=== PATIENT | female | born 1990 | race Caucasian/White ===

== ENCOUNTER 2016-11-19 00:34 | Emergency (ER) | payer OTHER ==
[2016-11-19] MEDS ORDERED: METOCLOPRAMIDE HCL INJECTION 10 MG/2 ML VIAL IVPB ONE (00:47)
[2016-11-19] MEDS ORDERED: SODIUM CHLORIDE 1,000 ML IV STA (00:47)
[2016-11-19] MEDS ORDERED: FAMOTIDINE 20 MG/50 ML IVPB 50 ML IVPB ONE ×2 (00:47→01:03)
[2016-11-19] MEDS ORDERED: ACETAMINOPHEN 325 MG TABLET (FP) PO ONE (00:47)
[2016-11-19] MEDS ORDERED: ACETAMINOPHEN 325 MG TABLET (FP) ONE (01:02)
[2016-11-19] MEDS ORDERED: METOCLOPRAMIDE HCL INJECTION 10 MG/2 ML VIAL ONE (01:02)
[2016-11-19 01:15] LABS: BASOPHIL 0.2 % (0-2.0); EOSINOPHIL 1.1 % (0-4.5); MCH 30.6 pg (25.7-33.7); MCHC 34.3 g/dl (32.0-36.0); MEAN CELL VOLUME 89.2 fl (80-96); MEAN PLT VOLUME 7.6 fl (7.5-11.1); NEUTROPHILS 84.6 % (42.8-82.8); PLATELET COUNT 225 K/MM3 (134-434); RDW 13.7 % (11.6-15.6); WHITE BLOOD COUNT 9.5 K/mm3 (4.0-10.0)
--- NOTE | 2016-11-19 01:30 | PDOC ---
History of Present Illness - General History Source: Patient Exam Limitations: No Limitations - History of Present Illness Initial Comments: 11/19/16 01:33 The patient is a 26 year old female (; currently approximately 11 weeks ), with no significant past medical history, who presents to the emergency department with nausea, vomiting and diarrhea since approximately 5: 30 PM yesterday evening. The patient reports three episodes of nonbloody nonbilious vomiting and two episodes of diarrhea in the past couple of hours. The patient additionally reports some abdominal cramping. The patient denies fever, chills or recent illnesses. The patient denies vaginal bleeding. Allergies: None reported. Past Surgical History: None reported. Social History: Non smoker. Denies alcohol or drug use. <Kenisha Thacker - Last Filed: 11/19/16 01:35> - General History Source: Patient Exam Limitations: No Limitations <Luis Pabon - Last Filed: 11/19/16 02:46> - General Stated Complaint: 11 WEEKS /VOMITING Time Seen by Provider: 11/19/16 00:39 Past History <Kenisha Thacker - Last Filed: 11/19/16 01:35> - Past Medical History Anemia: Yes - Reproductive History (#): 2 Para: 1 Therapeutic (s) & number: Yes - Psycho/Social/Smoking Cessation Hx Anxiety: No Suicidal Ideation: No Smoking History: Never smoked Have you smoked in the past 12 months: No Hx Alcohol Use: No Drug/Substance Use Hx: No Substance Use Type: None <Luis Pabon - Last Filed: 11/19/16 02:46> - Past Medical History Allergies/Adverse Reactions: Allergies Allergy/AdvReac Type Severity Reaction Status Date / Time No Known Allergies Allergy Verified 11/19/16 01:32 Home Medications: Ambulatory Orders Multivitamins [Multivit ([facility] Formul[facility])] 1 tab PO DAILY #30 tab 05/11/14 Ibuprofen [Motrin -] 600 mg PO TID #21 tablet 04/24/15 Acetaminophen [Tylenol] 650 mg PO Q4H PRN #20 tablet 11/19/16 Cephalexin [Keflex] 500 mg PO BID #10 capsule 11/19/16 Famotidine [Pepcid] 20 mg PO BID PRN #14 tablet 11/19/16 Metoclopramide HCl [Reglan] 10 mg PO Q8H PRN #12 tablet 11/19/16 Review of Systems - Review of Systems Able to Perform ROS?: Yes Comments:: 11/19/16 01:31 GENERAL/CONSTITUTIONAL: No fever or chills. No weakness. HEAD, EYES, EARS, NOSE AND THROAT: No change in vision. No ear pain or discharge. No sore throat. CARDIOVASCULAR: No chest pain or shortness of breath. RESPIRATORY: No cough, wheezing, or hemoptysis. GASTROINTESTINAL: +Nausea, vomiting, diarrhea, abdominal cramping. No constipation. GENITOURINARY: No dysuria, frequency, or change in urination. MUSCULOSKELETAL: No joint or muscle swelling or pain. No neck or back pain. SKIN: No rash. NEUROLOGIC: No headache, vertigo, loss of consciousness, or change in strength/ sensation. ENDOCRINE: No increased thirst. No abnormal weight change. HEMATOLOGIC/LYMPHATIC: No anemia, easy bleeding, or history of blood clots. ALLERGIC/IMMUNOLOGIC: No hives or skin allergy. <Kenisha Thacker - Last Filed: 11/19/16 01:35> *Physical Exam - Physical Exam Comments: 11/19/16 01:30 GENERAL: Awake, alert, and fully oriented, in no acute distress. HEAD: No signs of trauma. EYES: PERRLA, EOMI, sclera anicteric, conjunctiva clear. ENT: Dry mucosa. Auricles normal inspection, hearing grossly normal, nares patent, oropharynx clear without exudates. NECK: Normal ROM, supple, no lymphadenopathy, JVD, or masses. LUNGS: Breath sounds equal, clear to auscultation bilaterally. No wheezes, and no crackles. HEART: Regular rate and rhythm, normal S1 and S2, no murmurs, rubs or gallops. ABDOMEN: Mild epigastric tenderness. Soft, normoactive bowel sounds. No guarding , no rebound. No masses. EXTREMITIES: Normal range of motion, no edema. No clubbing or cyanosis. No cords , erythema, or tenderness. NEUROLOGICAL: Cranial nerves II through XII intact. Normal speech, normal gait. SKIN: Warm, dry, normal turgor, no rashes or lesions noted. <Kenisha Thacker - Last Filed: 11/19/16 01:35> ED Treatment Course - LABORATORY CBC & Chemistry Diagram: 11/19/16 01:00 11/19/16 01:00 - ADDITIONAL ORDERS Additional order review: 11/19/16 01:00 RBC 4.35 MCV 89.2 MCHC 34.3 RDW 13.7 MPV 7.6 Neutrophils % 84.6 H D Lymphocytes % 10.5 D Monocytes % 3.6 L Eosinophils % 1.1 D Basophils % 0.2 - Medications Given in the ED: ED Medications Discontinued Medications Generic Name Dose Route Start Last Admin Trade Name Freq PRN Reason Stop Dose Admin Acetaminophen 650 mg 11/19/16 00:47 11/19/16 01:09 Tylenol - PO 11/19/16 00:48 650 mg ONCE ONE Administration Famotidine/Sodium Chloride 50 mls @ 100 mls/hr 11/19/16 00:47 11/19/16 01:09 Pepcid 20 Mg Premixed Ivpb - IVPB 11/19/16 01:16 100 mls/hr ONCE ONE Administration Metoclopramide HCl 10 mg 11/19/16 00:47 11/19/16 01:09 Reglan Injection - IVPB 11/19/16 00:48 10 mg ONCE ONE Administration <Kenisha Thacker - Last Filed: 11/19/16 01:35> - LABORATORY CBC & Chemistry Diagram: 11/19/16 01:00 11/19/16 01:00 - RADIOLOGY Radiology Studies Ordered: Category Date Time Status <14WKS US [US] Stat Ultrasound 11/19/16 00:47 Ordered - Medications Given in the ED: ED Medications Discontinued Medications Generic Name Dose Route Start Last Admin Trade Name Freq PRN Reason Stop Dose Admin Acetaminophen 650 mg 11/19/16 00:47 11/19/16 01:09 Tylenol - PO 11/19/16 00:48 650 mg ONCE ONE Administration Famotidine/Sodium Chloride 50 mls @ 100 mls/hr 11/19/16 00:47 11/19/16 01:09 Pepcid 20 Mg Premixed Ivpb - IVPB 11/19/16 01:16 100 mls/hr ONCE ONE Administration Metoclopramide HCl 10 mg 11/19/16 00:47 11/19/16 01:09 Reglan Injection - IVPB 11/19/16 00:48 10 mg ONCE ONE Administration <Laney Pabonel - Last Filed: 11/19/16 02:46> Medical Decision Making - Medical Decision Making 11/19/16 01:17 A portion of this note was documented by scribe services under my direction. I have reviewed the details of the note, within reason, and agree with the documentation with the following case summary and management plan written by me. Patient treated in the ED. Nursing notes are reviewed and incorporated into the medical decision-making. Vital signs reviewed. Peripheral IV access obtained by the nurse, laboratory studies are drawn and sent, reviewed and interpreted by myself. 26 year old female with no past medical history, ~11 wks presents with nausea, vomiting, diarrhea. She report some abdominal cramping. Denies fevers. Reports several loose stools and vomiting for the last several hours. Denies bad foods, recent trips. I suspect that the patient has gastroenteritis. Given abdominal cramping, will obtain an abdominal ultrasound. Obtain labs, give IVF and symptom control. If workup is negative, supportive care and follow up with PMD. 11/19/16 02:37 CBC, BMP 11/19/16 01:00 11/19/16 01:00 CMP Sodium 138 mmol/L (136-145) 11/19/16 01:00 Potassium 3.4 mmol/L (3.5-5.1) L 11/19/16 01:00 Chloride 103 mmol/L (98-107) 11/19/16 01:00 Carbon Dioxide 25 mmol/L (21-32) D 11/19/16 01:00 Anion Gap 10 (8-16) 11/19/16 01:00 BUN 10 mg/dL (7-18) D 11/19/16 01:00 Creatinine 0.4 mg/dL (0.55-1.02) L D 11/19/16 01:00 Creat Clearance w eGFR > 60 (>60) 11/19/16 01:00 Random Glucose 87 mg/dL (74-106) 11/19/16 01:00 Calcium 8.1 mg/dL (8.5-10.1) L 11/19/16 01:00 Total Bilirubin 1.1 mg/dL (0.2-1.0) H D 11/19/16 01:00 AST 17 U/L (15-37) D 11/19/16 01:00 ALT 28 U/L (12-78) D 11/19/16 01:00 Alkaline Phosphatase 61 U/L (45-117) 11/19/16 01:00 Total Protein 6.1 g/dl (6.4-8.2) L 11/19/16 01:00 Albumin 3.2 g/dl (3.4-5.0) L 11/19/16 01:00 Lipase 74 U/L (73-393) 11/19/16 01:00 Urine Test Results Urine Color Yellow 11/19/16 01:36 Urine Appearance Clear 11/19/16 01:36 Urine pH 5.0 (5.0-8.0) 11/19/16 01:36 Ur Specific [facility] 1.023 (1.001-1.035) 11/19/16 01:36 Urine Protein Negative (NEGATIVE) 11/19/16 01:36 Urine Glucose (UA) Negative (NEGATIVE) 11/19/16 01:36 Urine Ketones Trace (NEGATIVE) H 11/19/16 01:36 Urine Blood Negative (NEGATIVE) 11/19/16 01:36 Urine Nitrite Negative (NEGATIVE) 11/19/16 01:36 Urine Bilirubin Negative (NEGATIVE) 11/19/16 01:36 Ur Leukocyte Esterase Trace (NEGATIVE) H 11/19/16 01:36 Labs reviewed. Ultrasound reviewed. Single live IUP with FHR 185 beats per minute. 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 11/19/16 02:43 I instructed the patient that she needs to follow up with her electronic transaction implementer doctor about this suspected cystic hygroma. This may require further testing regarding potential genetics, etc. At this time, the patient reports feeling better. The UA has +trace leuks. Will give a short course of keflex. Will have patient follow up with electronic transaction implementer Return precautions given. Discharge diagnosis: acute gastroenteritis. I discussed the physical exam findings, ancillary test results and final diagnoses with the patient. I answered all of the patient's questions. The patient was satisfied with the care received and felt comfortable with the discharge plan and treatment plan. The patient will call their primary care physician within 24 hours to arrange follow-up and will return to the Emergency Department with any new, persistant or worsening symptoms. <Luis Pabon - Last Filed: 11/19/16 02:46> *DC/Admit/Observation/Transfer - Attestations Scribe Attestion: 11/19/16 01:30 Documentation prepared by Kenisha Thacker, acting as medical writer for Luis Pabon MD. <Kenisha Thacker - Last Filed: 11/19/16 01:35> - Discharge Dispostion Admit: No <Luis Pabon - Last Filed: 11/19/16 02:46> Diagnosis at time of Disposition: Acute gastroenteritis - Discharge Dispostion Disposition: HOME Condition at time of disposition: Improved - Prescriptions Prescriptions: Cephalexin [Keflex] 500 mg PO BID #10 capsule Famotidine [Pepcid] 20 mg PO BID PRN #14 tablet PRN Reason: Abdominal Pain Metoclopramide HCl [Reglan] 10 mg PO Q8H PRN #12 tablet PRN Reason: Nausea Acetaminophen [Tylenol] 650 mg PO Q4H PRN #20 tablet PRN Reason: Pain/fever - Referrals Referrals: Marli Velasquez MD [Primary Care Provider] - - Patient Instructions Printed Discharge Instructions: DI for Viral Gastroenteritis -- Adult Additional Instructions: Please bring the copy of your results to your electronic transaction implementer doctor. Please let him/her know about the suspected hygroma. Take the medication as prescribed. For your urine, please take the antibiotic (keflex) every 12 hours for the next 5 days. These medications are safe your baby. It may take several days before you feel better.
[2016-11-19 01:33] VITALS: TEMP 97.6; BMI 25.4
[2016-11-19 01:49] LABS: ALBUMIN 3.2 g/dl (3.4-5.0); ANION GAP 10 (8-16); BILIRUBIN,TOTAL 1.1 mg/dL (0.2-1.0); CALCIUM 8.1 mg/dL (8.5-10.1); CO2 25 mmol/L (21-32); CREATININE 0.4 mg/dL (0.55-1.02); GLUCOSE,RANDOM 87 mg/dL (74-106); SGOT/AST 17 U/L (15-37); SGPT/ALT 28 U/L (12-78); TOT PROT 6.1 g/dl (6.4-8.2)
[2016-11-19 01:50] LABS: ALK PHOS 61 U/L (45-117)
[2016-11-19 02:11] LABS: URINE APPEARANCE CLEAR; URINE BILIRUBIN NEGATIVE (NEGATIVE); URINE BLOOD NEGATIVE (NEGATIVE); URINE COLOR YELLOW; URINE GLUCOSE (UA) NEGATIVE (NEGATIVE); URINE KETONE TRACE (NEGATIVE); URINE NITRITE NEGATIVE (NEGATIVE); URINE PROTEIN NEGATIVE (NEGATIVE); URINE UROBILINOGEN NEGATIVE E.U./dl (0.2-1.0)
[2016-11-19 02:18] LABS: URINE LEUK ESTERASE TRACE (NEGATIVE)
[2016-11-19] MEDS ORDERED: CEPHALEXIN MONOHYDRATE 500 MG CAPSULE (UD) PO ONE (02:58)
[2016-11-19] MEDS ORDERED: CEPHALEXIN MONOHYDRATE 250 MG CAPSULE (FP) ONE (03:34)
[2016-11-19 04:10] LABS: URINE MUCUS MODERATE; URINE RBC 3 /hpf (0-3); URINE WBC 5 /hpf (3-5)
[2016-11-19 04:26] VITALS: BP 132/68; PULSE 78
== END 2016-11-19 04:00 | disposition home or self-care (01) ==
LOC: JER 00:34
PROC: 3E033GC Introduction of Other Therapeutic Substance into Peripheral Vein, Percutaneous Approach (ICD-10-PCS; principal; 2016-11-19)
DX: O99.89 Other specified diseases and conditions complicating pregnancy, childbirth and the puerperium (principal); K52.9 Noninfective gastroenteritis and colitis, unspecified; Z3A.11 11 weeks gestation of pregnancy
CPT/HCPCS: 36415; 76801-TC; 80053; 81003; 81015; 83690; 85025; 87086; 96365; 96375; 99283-25

== ENCOUNTER 2018-03-27 22:00 | Inpatient (IN) | payer OTHER ==
[2018-03-27] MEDS ORDERED: SODIUM PHOSPHATE/NA BIPHOS 133 ML ENEMA PR ONE (23:15)
[2018-03-27 23:29] LABS: BASO % 0.2 % (0-2.0); HEMATOCRIT 35.6 % (32.4-45.2); HEMOGLOBIN 12.1 GM/dL (10.7-15.3); LYMPH % 33.2 % (8-40); MEAN CELL VOLUME 88.5 fl (80-96); MEAN PLT VOLUME 8.1 fl (7.5-11.1); MONO % 7.5 % (3.8-10.2); NEUT % 58.1 % (42.8-82.8); PLATELET COUNT 245 K/MM3 (134-434); RBC 4.02 M/mm3 (3.60-5.2); RDW 14.5 % (11.6-15.6)
[2018-03-27] MEDS ORDERED: PROMETHAZINE HCL 25 MG/1 ML VIAL IVPUSH ONE (23:41)
[2018-03-27] MEDS ORDERED: BUTORPHANOL TARTRATE 1 MG/ML VIAL IVPB ONE (23:41)
[2018-03-27 23:43] LABS: INR 0.98 (0.83-1.09); PROTHROMBIN TIME (PATIENT) 11.1 SEC (9.7-13.0)
[2018-03-27 23:45] VITALS: BMI 31.7
[2018-03-27 23:45] LABS: ACTIVATED PTT 28.7 SECONDS (25.2-36.5)
[2018-03-27] MEDS ORDERED: DEXTROSE 5%-LACTATED RINGERS 1,000 ML IV SCH (23:45)
[2018-03-27] MEDS ORDERED: BUTORPHANOL TARTRATE 1 MG/ML VIAL ONE ×2 (23:57)
[2018-03-27] MEDS ORDERED: PROMETHAZINE HCL 25 MG/1 ML VIAL ONE (23:57)
--- NOTE | 2018-03-27 23:59 | HP ---
Past Medical History - Primary Care Physician PCP:: Mayte Nolen - Admission Chief Complaint: 27 yrs , 38.5 weeks admitted in labor , onset at 8.40 PM on 03/27/18 History of Present Illness: [facility] . official records not available pt has card with information , work Up 08/29/17 pap wnl, gc/ct neg, O pos , , Rubella immune, Rpr nr, varicella immune, Hbsag neg, h/h 13.2/40.9 , plt 189 , random Gl 72, lead neg , 10/24/17 Quantiferon neg, Msafp neg 12/26/17 1 hr gtt 96, Rpr nr, h/h 12.2/33.0 , plt 165 . 7 Bile acds -3 , LFT ast/alt 03/06/18 Hiv neg, rpr nr, Gbs neg, gc/ct neg , h/h/ 12.4/36.9 . wt gain 38 lbs , BP range 101-117/diastolic 60-77 Sono done 08/30/17 8.6 wks 11/16/17 20 , edc assigned 04/05/18 03/25/2018 at [facility], Vx, 38.2 wks, efw 7'10", GRAY 14.1 cm , Placenta Ant History Source: Patient, Medical Record Limitations to Obtaining History: No Limitations - Past Medical History CT TECHNOLOGIST: No: Migraine Cardiovascular: No: HTN, Murmur Pulmonary: No: Asthma Gastrointestinal: No: GERD Hepatobiliary: No: Hepatitis B Renal/: No: UTI ...: 3 ...Para: 1 (10/09/2011 , [facility] : 7'14" ) ...Spon : 1 (missed ab D&C done -8 wks gestation) ...LMP: 06/29/17 ... Weeks Gestation by Dates: 38.5 ...EDC by Dates: 04/05/18 ...EDC by Sono: 04/05/18 Heme/Onc: No: Anemia Infectious Disease: No: AIDS, HIV, STD's, Tuberculosis Psych: No: Addictions, Anxiety, Bipolar, Depression, Panic, Psychosis, Schizophrenia - Past Surgical History Past Surgical History: Yes: None Hx Myomectomy: No Hx Transabdominal Cerclage: No - Smoking History Smoking history: Never smoked Have you smoked in the past 12 months: No - Alcohol/Substance Use Hx Alcohol Use: No History of Substance Use: reports: None Home Medications - Allergies Allergies/Adverse Reactions: Allergies Allergy/AdvReac Type Severity Reaction Status Date / Time No Known Allergies Allergy Verified 03/25/18 16:49 - Home Medications Home Medications: Ambulatory Orders Pnv No.95/Ferrous Fum/Folic AC [ Vitamin Tablet] 1 each PO DAILY Physical Exam - Maternity Vital Signs: Selected Entries 03/27/18 22:55 Temperature 98.7 F Pulse Rate 91 H Respiratory 20 Rate Blood Pressure 122/70 Weight 168 lb Constitutional: Yes: Well Nourished, Calm, Moderate Distress Eyes: Yes: WNL HENT: Yes: WNL, Normocephalic Neck: Yes: WNL Cardiovascular: Yes: WNL, Regular Rate and Rhythm Lungs: Clear to auscultation Breast(s): Yes: WNL. No: Mass - Abdominal Exam/OB Fundal Height: 38 Number of Fetuses: Single Presentation: Vertex Contractions: Yes Intensity: Moderate Monitor Mode: External Heart Rate (range): 140 Heart Rate Location: [facility] Category: I Accelerations: Uniform Decelerations: None - Vaginal Exam/OB Vaginal Bleediing: Old Blood Speculum Exam: Yes (no gross leaking , ) Dilatation (cm): 4 Effacement (%): 80 Amniotic Membrane Status: Intact Nitrazine Test: Negative Presentation: Vertex/Position (exam at 10.45 PM 03/27/18) Station: -1 - Physical Exam Musculoskeletal: Yes: WNL Extremities: Yes: WNL. No: Calf Tenderness Edema: LLE: 1+, RLE: 1+ Integumentary: Yes: Tattoos Deep Tendon Reflex Grade: Normal +2 ...Motor Strength: WNL Psychiatric: Yes: WNL, Alert, Oriented - Labs Lab Results: CBC, BMP 03/27/18 23:15 Laboratory Tests 03/27/18 23:15 PT with INR 11.10 INR 0.98 PTT (Actin FS) 28.7 Laboratory Tests 03/27/18 03/27/18 03/27/18 23:15 23:15 23:30 Sodium 136 Potassium 3.7 Chloride 103 Carbon Dioxide 26 BUN 11 Creatinine 0.4 L Random Glucose 87 Calcium 8.7 Urine Protein Opiates Screen Negative Methadone Screen Negative Barbiturate Screen Negative Phencyclidine Screen Negative Ur Amphetamines Screen Negative MDMA (Ecstasy) Screen Negative Benzodiazepines Screen Negative Cocaine Screen Negative U Marijuana (THC) Screen Negative HIV 1&2 Antibody Screen Negative HIV P24 Antigen Negative 03/27/18 23:30 Sodium Potassium Chloride Carbon Dioxide BUN Creatinine Random Glucose Calcium Urine Protein Negative Opiates Screen Methadone Screen Barbiturate Screen Phencyclidine Screen Ur Amphetamines Screen MDMA (Ecstasy) Screen Benzodiazepines Screen Cocaine Screen U Marijuana (THC) Screen HIV 1&2 Antibody Screen HIV P24 Antigen Problem List - Problems (1) 38 weeks gestation of Code(s): Z3A.38 - 38 WEEKS GESTATION OF (2) First stage of labor established Code(s): ITF2683 - (3) with care elsewhere Code(s): Z34.90 - ENCNTR FOR SUPRVSN OF NORMAL , UNSP, UNSP TRIMESTER Qualifiers: Trimester: third trimester Qualified Code(s): Z34.93 - Encounter for supervision of normal , unspecified, third trimester Assessment/Plan 27 yrs , 38.5 weeks admitted in labor . gbs neg Plan Request chart from [facility] clinic in AM , chart not available at L&D in [facility] stadol + Phenrgan for labor analgesia( given at 12.00 mid night ) & or epidural prn anticipate vaginal delivery . 03/28/18 12.35 AM 9 cm/100 %/ Vx +1 station / AROM scanty fluid . 01.10 AM fully dilated , 100 %, +3 , Mr, pt pushing
[2018-03-28 00:06] LABS: URINE APPEARANCE CLEAR; URINE BILIRUBIN NEGATIVE (<2.0 mg/dL); URINE COLOR STRAW; URINE GLUCOSE (UA) NEGATIVE (NEGATIVE); URINE KETONE NEGATIVE (NEGATIVE); URINE LEUK ESTERASE NEGATIVE (NEGATIVE); URINE NITRITE NEGATIVE (NEGATIVE); URINE PROTEIN NEGATIVE (NEGATIVE); URINE UROBILINOGEN NEGATIVE mg/dL (0.2-1.0)
[2018-03-28 00:08] LABS: ANION GAP 7 (8-16); BLOOD UREA NITROGEN 11 mg/dL (7-18); CALCIUM 8.7 mg/dL (8.5-10.1); CHLORIDE 103 mmol/L (98-107); CO2 26 mmol/L (21-32); CREATININE 0.4 mg/dL (0.55-1.02); GLUCOSE,RANDOM 87 mg/dL (74-106); POTASSIUM 3.7 mmol/L (3.5-5.1); SODIUM 136 mmol/L (136-145)
[2018-03-28 00:10] LABS: EPI CELLS RARE /HPF (FEW); URINE BACTERIA RARE /hpf (NONE SEEN)
[2018-03-28 00:15] LABS: COCAINE, UR NEGATIVE ng/ml (CUTOFF=300); METHADONE, UR NEGATIVE ng/ml (CUTOFF=300); OPIATES, URI NEGATIVE ng/ml (CUTOFF=300); PHENCYCLIDINE,URINE NEGATIVE ng/ml (CUTOFF=25); URINE AMPHETAMINES NEGATIVE ng/ml (CUTOFF=500); URINE BARBITURATES NEGATIVE ng/ml (CUTOFF=200); URINE BENZODIAZEPINES NEGATIVE ng/ml (CUTOFF=200)
[2018-03-28] MEDS ORDERED: LIDOCAINE HCL 1% PRESERVATIVE FREE - 30ML VIAL ONE (00:41)
[2018-03-28] MEDS ORDERED: OXYTOCIN 20 UNITS in 0.9% NS 20 UNIT/1,000 ML INFUS.BAG IV ONE ×3 (00:41→02:57)
[2018-03-28] MEDS ORDERED: BENZOCAINE 28 GM HEMORRHOIDAL OINTMENT TP PRN (01:49)
[2018-03-28] MEDS ORDERED: BENZOCAINE 20% 57 GM BOTTLE TP PRN (01:49)
[2018-03-28] MEDS ORDERED: WITCH HAZEL 50% (TUCKS) 40 PAD/JAR PAD TP PRN (01:49)
[2018-03-28] MEDS ORDERED: METHYLERGONOVINE MALEATE 0.2 MG/1 ML AMP IM PRN (01:49)
[2018-03-28] MEDS ORDERED: BISACODYL 10 MG SUPP.RECT RC PRN (01:49)
[2018-03-28] MEDS ORDERED: oxyCODONE HCL 5 MG TABLET PO PRN (01:49)
--- NOTE | 2018-03-28 01:59 | PN ---
Delivery - Delivery Vaginal Delivery: No Problems, Spontaneous (baby delievered Vx ,in [place] position , with intact perineum .shoulder delivery uneventful, immediate oral & nasal suction was done) Type of Anesthesia: None Episiotomy/Laceration: None EBL (cc): 300 (bladder catheterized & emptied , 30 ml urine ) Delivery, Single - Stages of Labor Date 1st Stage Initiatied: 03/27/18 Time 1st Stage Initiated: 21:40 Date 2nd Stage Initiated: 03/28/18 Time 2nd Stage Initiated: 01:10 Date of Delivery: 03/28/18 Time of Delivery: 01:15 Date Placenta Delivered: 03/28/18 (IM Methergine 0.2 mg given prophylactically ) Time Placenta Delivered: 01:36 Placenta: Yes: Spontaneous, Uterine Exploration - Condition of Peoplesoft Hcm Developer/Ad Taker Present: No Infant Gender: Male Weight: 7 lb 10 oz Position: Left, OA Total Hours ROM (Hrs/Mins): 61 min - 1 Minute Total Score: 9 5 Minutes Total Score: 9 - [place] Feeding Plan Initial Plan: Elected not to breastfeed exclusively throughout hospitalization Remarks - Remarks Remarks: 27 yrs , 38.5 weeks admitted in labor . pnc at [facility] , uneventful. GBS neg Intrapartum IV stadol 2mg + phenrgan 25 mg for labor analgesia was given intrapartum course uneventful
[2018-03-28] MEDS ORDERED: OXYTOCIN 20 UNITS in 0.9% NS 20 UNIT/1,000 ML INFUS.BAG IV SCH (02:00)
[2018-03-28] MEDS: FERROUS SO4 325 MG TABLET (FP) PO SCH ×2 (08:31→17:14)
[2018-03-28] MEDS: PRENATAL VITAMINS W/ FOLIC ACID TABLET (FP) PO SCH (09:19)
[2018-03-28] MEDS: IBUPROFEN 600 MG TABLET (FP) PO PRN (22:00)
[2018-03-28] MEDS: ACETAMINOPHEN 325 MG TABLET (FP) PO PRN (22:01)
[2018-03-29] MEDS: FERROUS SO4 325 MG TABLET (FP) PO SCH ×2 (08:10→17:15)
[2018-03-29 09:00] LABS: BASO % 0.4 % (0-2.0); EOS % 1.5 % (0-4.5); HEMOGLOBIN 11.2 GM/dL (10.7-15.3); MCH 30.6 pg (25.7-33.7); MCHC 34.1 g/dl (32.0-36.0); MEAN CELL VOLUME 89.9 fl (80-96); MEAN PLT VOLUME 7.7 fl (7.5-11.1); MONO % 7.1 % (3.8-10.2); PLATELET COUNT 216 K/MM3 (134-434); RBC 3.67 M/mm3 (3.60-5.2); RDW 14.6 % (11.6-15.6); WHITE BLOOD COUNT 8.1 K/mm3 (4.0-10.0)
[2018-03-29] MEDS: PRENATAL VITAMINS W/ FOLIC ACID TABLET (FP) PO SCH (09:09)
[2018-03-29] MEDS: IBUPROFEN 600 MG TABLET (FP) PO PRN ×2 (09:55→21:20)
[2018-03-29] MEDS: ACETAMINOPHEN 325 MG TABLET (FP) PO PRN (09:57)
[2018-03-29] MEDS ORDERED: DIPHTH,PERTUSS(ACELL),TET 0.5 ML DISP.SYRIN IM ONE (10:00)
--- NOTE | 2018-03-29 10:58 | PN ---
Post Progress Note - Subjective Subjective: Status post vaginal delivery. Doing well. Post Day: 1 Type of Delivery: Vital Signs: Vital Signs Temperature 98.3 F 03/29/18 08:50 Pulse Rate 89 03/29/18 08:50 Respiratory Rate 20 03/29/18 08:50 Blood Pressure 93/57 03/29/18 08:50 O2 Sat by Pulse Oximetry (%) 98 03/28/18 02:45 Breast Exam: Yes: Soft Uterus: Yes: Fundus Firm Abdomen/GI: Yes: Abdomen soft, Tolerating PO Lochia: Yes: Rubra Lochia, amount: Moderate Extremities: Yes: Calves non-tender Activity: Ambulating - Labs Labs: CBC WBC 8.1 K/mm3 (4.0-10.0) 03/29/18 08:34 RBC 3.67 M/mm3 (3.60-5.2) 03/29/18 08:34 Hgb 11.2 GM/dL (10.7-15.3) 03/29/18 08:34 Hct 33.0 % (32.4-45.2) 03/29/18 08:34 MCV 89.9 fl (80-96) 03/29/18 08:34 MCH 30.6 pg (25.7-33.7) 03/29/18 08:34 MCHC 34.1 g/dl (32.0-36.0) 03/29/18 08:34 RDW 14.6 % (11.6-15.6) 03/29/18 08:34 Plt Count 216 K/MM3 (134-434) 03/29/18 08:34 MPV 7.7 fl (7.5-11.1) 03/29/18 08:34 Absolute Neuts (auto) 4.8 # 03/29/18 08:34 Neutrophils % 59.0 % (42.8-82.8) 03/29/18 08:34 Lymphocytes % 32.0 % (8-40) 03/29/18 08:34 Monocytes % 7.1 % (3.8-10.2) 03/29/18 08:34 Eosinophils % 1.5 % (0-4.5) 03/29/18 08:34 Basophils % 0.4 % (0-2.0) 03/29/18 08:34 Nucleated RBC % 0 % (0-0) 03/29/18 08:34 Assessment/Plan Status post vaginal delivery Stable Continue routine care
--- NOTE | 2018-03-29 13:53 | DS ---
Physical Exam-FACILITIES OPERATIONS TECHNICIAN Vital Signs: Vital Signs Temperature 98.3 F 03/29/18 08:50 Pulse Rate 89 03/29/18 08:50 Respiratory Rate 20 03/29/18 08:50 Blood Pressure 93/57 03/29/18 08:50 O2 Sat by Pulse Oximetry (%) 98 03/28/18 02:45 Constitutional: Yes: Well Nourished Eyes: Yes: WNL HENT: Yes: WNL Neck: Yes: WNL Cardiovascular: Yes: WNL Respiratory: Yes: WNL Gastrointestinal: Yes: WNL ...Rectal Exam: Yes: WNL External Genitalia: Yes: Normal ....Post : Yes: Uterus firm (below umblicus), Uterus non-tender, Moderate lochia rubra (perineum intact) Breast(s): Yes: WNL (BF), Other (breast not engorged) Musculoskeletal: Yes: WNL Extremities: Yes: WNL. No: Calf Tenderness Edema: LLE: Trace, RLE: Trace Integumentary: Yes: Tattoos Neurological: Yes: WNL, Alert, Oriented ...Motor Strength: WNL Psychiatric: Yes: WNL, Alert, Oriented Labs: CBC, BMP 03/29/18 08:34 03/27/18 23:15 Delivery - Delivery Vaginal Delivery: No Problems, Spontaneous (baby delievered Vx ,in [place] position , with intact perineum .shoulder delivery uneventful, immediate oral & nasal suction was done) Type of Anesthesia: None Episiotomy/Laceration: None EBL (cc): 300 (bladder catheterized & emptied , 30 ml urine ) Delivery, Single - Stages of Labor Date 1st Stage Initiatied: 03/27/18 Time 1st Stage Initiated: 21:40 Date 2nd Stage Initiated: 03/28/18 Time 2nd Stage Initiated: 01:10 Date of Delivery: 03/28/18 Time of Delivery: 01:15 Time Placenta Delivered: 01:36 Placenta: Yes: Spontaneous, Uterine Exploration - Condition of Budget Analyst/Bed Laster Present: No Gender: Male Weight: 7 lb 10 oz Position: Left, OA Total Hours ROM (Hrs/Mins): 61 min - 1 Minute Total Score: 9 5 Minutes Total Score: 9 - Feeding Plan Initial Plan: Elected not to breastfeed exclusively throughout hospitalization Remarks - Remarks Remarks: 27 yrs , 38.5 weeks admitted in labor . pnc at [facility] , uneventful. GBS neg Intrapartum IV stadol 2mg + phenrgan 25 mg for labor analgesia was given intrapartum course uneventful . pp course uneventful. discharge on 03/30/18 Discharge Summary Reason For Visit: ADMITTED Current Active Problems 38 weeks gestation of (Acute) First stage of labor established (Acute) with care elsewhere (Acute) Status post normal delivery (Acute) Condition: Stable - Instructions Diet, Activity, Other Instructions: Post Instructions DIET: Continue good diet high in protein, calcium, and iron rich foods. Drink at least eight (8) glasses of water daily in addition to other fluids. ___ Regular diet MEDICATIONS: Continue vitamins and iron as previously directed. Motrin and Tylenol may be taken for minor discomfort. ACTIVITY: Mild to moderate exercise may be started in two (2) weeks. Take frequent rest periods. Resume normal activity after six (6) week check up. WOUND CARE OF OPERATIVE SITE: Continue use of perineal bottle until vaginal discharge stops. Keep area clean. Shower daily. Keep abdominal wound dry. Report any drainage or redness to physician. Tub baths, tampons and douches are not permitted for [address] Breast feeding & or Bottle feeding BREAST CARE: (For those that are not breast feeding): If engorgement occurs: Wear tight fitting bra. Take Tylenol or Motrin for pain. Apply cold packs (ice in bags to each breast ) FAMILY PLANNING: There are many control alternatives to pursue and they should be discussed at your first office visit. You may resume sexual activity after your six (6) week check up. (Remember, breast feeding is not a contraceptive) NEXT PHYSICIAN APPOINTMENT: Be certain to call for a six (6) week appointment, unless otherwise directed. pt prefers to go to her Ob MD at [facility] affiliated clinic Call Clinic or got to Emergency Dept if you have any of the following: Heavy vaginal bleeding Painful urination Leg pain Unusual odor noted to vaginal bleeding High fever Red streaking noted on breast Referrals: Mayte Nolen MD [Staff Physician] - Disposition: HOME - Home Medications Comprehensive Discharge Medication List: Ambulatory Orders Pnv No.95/Ferrous Fum/Folic AC [ Vitamin Tablet] 1 each PO DAILY Acetaminophen [Tylenol .Regular Strength -] 650 mg PO Q3H PRN tablet 03/29/18 Ibuprofen [Motrin -] 200 mg PO Q4H PRN tablet 03/29/18 Vitamins ([facility]) - 1 tab PO DAILY tablet 03/29/18
[2018-03-29] MEDS ORDERED: SENNOSIDES/DOCUSATE COMBO (SENNA PLUS) TABLET (UD) PO PRN (22:00)
--- NOTE | 2018-03-30 07:40 | PN ---
Progress Note (short form) - Note Progress Note: ppd 2 ,no c/o ,voids ok, no excess vaginal bleeding CBC, BMP 03/29/18 08:34 03/27/18 23:15 Last Vital Signs Temp Pulse Resp BP Pulse Ox 98.6 F 75 20 106/52 98 03/29/18 21:00 03/29/18 21:00 03/29/18 21:00 03/29/18 21:00 03/28/18 02:45 abdomen soft, non tender , no cva uterus firm lochia mild no calf tenderness plan d/c homr , rtc 4 weeks
[2018-03-30 07:58] VITALS: BP 93/60; PULSE 79; TEMP 98.2
[2018-03-30] MEDS: IBUPROFEN 600 MG TABLET (FP) PO PRN (08:24)
[2018-03-30] MEDS: FERROUS SO4 325 MG TABLET (FP) PO SCH (08:24)
[2018-03-30] MEDS: ACETAMINOPHEN 325 MG TABLET (FP) PO PRN (08:25)
[2018-03-30] MEDS: PRENATAL VITAMINS W/ FOLIC ACID TABLET (FP) PO SCH (09:13)
== END 2018-03-30 11:30 | disposition home or self-care (01) | DRG 560 ==
LOC: JDEL 22:00 → JLDR 22:55 → J3W 03-28 03:34
PROVIDERS: ADMIT Obstetrics & Gynecology; ATTEND Obstetrics & Gynecology
PROC: 10E0XZZ Delivery of Products of Conception, External Approach (ICD-10-PCS; principal; 2018-03-28)
DX: O80 Encounter for full-term uncomplicated delivery (principal); Z3A.38 38 weeks gestation of pregnancy; Z37.0 Single live birth
CPT/HCPCS: 36415; 59409; 80048; 80307; 81003; 81015; 85025; 85610; 85730; 86593; 86850; 86900; 86901; 87389; 90715

== ENCOUNTER 2023-08-15 18:34 | Emergency (ER) | payer OTHER ==
[2023-08-15 19:13] VITALS: BP 108/59; PULSE 96; RESP 18; TEMP 98.6; BMI 34.0
== END 2023-08-15 22:05 | disposition home or self-care (01) ==
LOC: JER 18:34 → JERFT 18:34
DX: M79.601 Pain in right arm (principal); R20.2 Paresthesia of skin; R50.9 Fever, unspecified; M79.10 Myalgia, unspecified site; R10.9 Unspecified abdominal pain; R53.83 Other fatigue; Z20.822 Contact with and (suspected) exposure to COVID-19
CPT/HCPCS: 0241U-QW; 93971; 99284-25

== ENCOUNTER 2023-12-20 00:54 | Emergency (ER) | payer OTHER ==
[2023-12-20 01:06] VITALS: RESP 18; BMI 32.1
[2023-12-20] MEDS ORDERED: ACETAMINOPHEN 500 MG TABLET (FP) ONE (01:55)
[2023-12-20] MEDS: ACETAMINOPHEN 325 MG TABLET (FP) PO ONE (01:57)
[2023-12-20 05:43] VITALS: BP 120/70; PULSE 99; TEMP 98.4
== END 2023-12-20 07:18 | disposition home or self-care (01) ==
LOC: JER 00:54
DX: S00.33XA Contusion of nose, initial encounter (principal); S09.90XA Unspecified injury of head, initial encounter; R04.0 Epistaxis; Y04.0XXA Assault by unarmed brawl or fight, initial encounter
CPT/HCPCS: 70450-TC; 70486-TC; 72125-TC; 84703; 99284-25

== ENCOUNTER 2024-03-17 09:01 | Emergency (ER) | payer OTHER ==
[2024-03-17 09:11] VITALS: TEMP 98.5; BMI 29.4
[2024-03-17] MEDS ORDERED: DIPHTH,PERTUSS(ACELL),TET 0.5 ML DISP.SYRIN IM ONE ×2 (10:53→10:54)
[2024-03-17] MEDS: DIPHTH,PERTUSS(ACELL),TET 0.5 ML DISP.SYRIN IM ONE (11:00)
[2024-03-17 11:21] VITALS: BP 130/78; PULSE 80; RESP 20
== END 2024-03-17 12:11 | disposition home or self-care (01) ==
LOC: JER 09:01
PROC: 3E0234Z Introduction of Serum, Toxoid and Vaccine into Muscle, Percutaneous Approach (ICD-10-PCS; principal; 2024-03-17)
DX: S61.412A Laceration without foreign body of left hand, initial encounter (principal); W26.0XXA Contact with knife, initial encounter; Z23 Encounter for immunization
CPT/HCPCS: 90471; 90715; 99291

== ENCOUNTER 2024-10-06 12:43 | Emergency (ER) | payer OTHER ==
[2024-10-06 12:51] VITALS: RESP 18; BMI 33.2
[2024-10-06 15:21] VITALS: BP 115/66; PULSE 81; TEMP 98
== END 2024-10-06 15:21 | disposition home or self-care (01) ==
LOC: JER 12:43
DX: O99.891 Other specified diseases and conditions complicating pregnancy (principal); G56.01 Carpal tunnel syndrome, right upper limb; M25.531 Pain in right wrist; Z3A.20 20 weeks gestation of pregnancy
CPT/HCPCS: 93971; 99284-25